=== PATIENT | male | born 1945 | race Caucasian/White ===

== ENCOUNTER 2025-05-02 13:29 | Inpatient (IN) | payer MEDICARE, MEDICAID ==
[~2025-05-02] VITALS: Ht 162.6 cm; Wt 44.2 kg
[2025-05-02] VITALS (7 sets, daily range): BP systolic 77; BP diastolic 45; PULSE 68–89; RESP 16–35; TEMP 97.3; O2SAT 97–100
[~2025-05-02 13:29] MED LIST: HYDR-3565 PO; OMEPRAZOLE
[2025-05-02] MEDS ORDERED: ipratropium/albuterol 3ml nebule NEB PRN (13:50)
--- NOTE | 2025-05-02 14:14 | Physician Documentation ---
History of Present Illness ~ Chief Complaint: Shortness of Breath Stated Complaint: SOB Time Seen by MD: 13:49 Source: patient Exam Limitations: no limitations HPI Patient with a history of COPD on 3 L nasal cannula in with worsening shortness of breath over the past couple of days. Increased cough. No chest pain. History of myocardial infarction. He states it was "mild." Still smokes 5-6 cigarettes a day. Medication Reconciliation Allergies: Coded Allergies: Penicillins (Unverified Allergy, Unknown, PT UNSURE., 04/04/14) Scheduled Hydrocodone Bit/Acetaminophen (Vicodin 5-300 Mg Tablet), 1 EACH PO Q6H, (Reported) [Omeprazole], DAILY, (Reported) Review of Systems All Other Systems at this time: Reviewed and Negative Physical Exam Vital Signs: Temperature: 97.6, Source: Oral, Heart Rate: 89, Respiratory Rate: 15, BP: 87/46, Pulse Oximetry: 99, Weight: 39.000 Oxygen Flow Rate: 3.0 General Appearance: alert, mild distress Neck: normal inspection Respiratory: other (Decreased lung sounds, mildly increased work of breathing; accessory muscle use to breathe when he speaks) Cardiovascular: regular rate, rhythm, no edema, no murmur Gastrointestinal: normal palpation, non-tender Extremities: normal inspection Skin: normal color, warm/dry Neurologic: oriented x4 Psychiatric: appropriate Progress Progress Note Patient feeling in short of breath for the last couple of days and increased cough. History COPD. Chest x-ray shows moderate to large pleural effusion. CT pending for further evaluation. Did give a L of fluids in the ER because his pressures were low. No tachycardia. No fever. Leukocytosis but lactate 2.2. Sepsis versus dehydration. Started on Rocephin. Discussed with hospitalist team who will accept for admission and treatment. Critical care time spent 30 minutes with patient care, chart work and consultation. Results/Orders Results/Orders Orders - LAURI GRAY MD Ipratropium/Albuterol Nebule (Ipratrop/A (05/02/25 13:50) Culture Blood (05/02/25 13:51) Urinalysis, Cult If Indicated (05/02/25 13:51) Chest,Single View (05/02/25 14:02) Monitor (05/02/25 13:51) Oxygen (05/02/25 13:51) Saline Lock (05/02/25 13:51) Page Hospitalist (05/02/25 ) Thoracentesis Therapeutic (A) (05/02/25 14:34) Thoracentesis Diagnostic (A) (05/02/25 ) Cta Chest Pe (05/02/25 14:43) Completed Orders - LAURI GRAY MD Normal Saline 1000ml (0.9% Sodium Chlori (05/02/25 13:50) Methylprednisolone Sod Succ (Solumedrol (05/02/25 13:50) Cbc/Diff (05/02/25 13:51) Chest,Single View (05/02/25 14:02) Procalcitonin (05/02/25 13:51) BMP (05/02/25 13:51) Lacticsepsis (05/02/25 13:51) Ceftriaxone/V1n-Nmufukjn 1gm (Rocephin 1 (05/02/25 14:20) Iohexol 350mg/Ml 100ml (Omnipaque 350mg/ (05/02/25 14:55) Medications Received in ER Medications (Trade) Dose Ordered Sig/Darrick Route PRN Reason Start Time Stop Time Status Last Admin Dose Admin Sodium Chloride 1,000 ml @ 1,000 mls/hr ONCE ONCE IV 05/02/25 13:50 05/02/25 14:49 DC 05/02/25 14:33 1,000 MLS/HR (SoluMEDROL 125mg inj) 125 mg ONCE ONCE IV 05/02/25 13:50 05/02/25 13:52 DC 05/02/25 14:33 125 MG Ceftriaxone Sodium 50 ml @ 100 mls/hr ONCE ONCE IV 05/02/25 14:20 05/02/25 14:49 DC 05/02/25 14:33 100 MLS/HR Vital Signs 05/02/25 05/02/25 13:30 13:39 Temp 97.6 Pulse 88 89 Resp 20 15 B/P (MAP) 92/74 87/46 (60) Pulse Ox 98 99 O2 Flow Rate 3.0 Laboratory Tests Test 05/02/25 14:02 05/02/25 14:13 Lactic Acid Level 2.2 H White Blood Count 8.3 Red Blood Count 4.02 L Hemoglobin 11.8 L Hematocrit 35.6 L Mean Corpuscular Volume 88.6 Mean Corpuscular Hemoglobin 29.4 Mean Corpuscular Hemoglobin Concent 33.2 Red Cell Distribution Width 18.9 H Platelet Count 354 Mean Platelet Volume 6.4 L Neutrophils (%) (Auto) 82.7 H Lymphocytes (%) (Auto) 10.5 L Monocytes (%) (Auto) 6.5 Eosinophils (%) (Auto) 0.1 Basophils (%) (Auto) 0.2 Neutrophils # (Auto) 6.9 Lymphocytes # (Auto) 0.9 L Monocytes # (Auto) 0.5 Eosinophils # (Auto) 0.0 Basophils # (Auto) 0.0 CBC Comment Platelet Estimate Normal Red Blood Cell Morphology Perf Basophilic Stippling Anisocytosis 2+ Sodium Level 135 Potassium Level 4.2 Chloride Level 98 L Carbon Dioxide Level 26.8 Anion Gap 10 Blood Urea Nitrogen 42 H Creatinine 1.21 H Estimated GFR/1.73 m2 58 BUN/Creatinine Ratio 34.7 H Glucose Level 149 H Calcium Level 9.2 Albumin 2.0 L Procalcitonin 0.28 Chemistry Comments Medical Decision Making Additional Infomation Antral includes but isn't limited to: COPD exacerbation, pneumonia, pneumothorax, myocardial infarction, viral infection Departure Disposition: 09 ADMITTED INPATIENT Admitted to Inpatient Unit: yes, to hospitalist Admission Level of Care: Med/Surg with Tele Impression: Primary Impression: Pleural effusion, right Additional Impression: COPD exacerbation Condition: Stable Referrals: NO PRIMARY CARE PROVIDER (PCP) Signature Scribe Signature: No scribe used Attestation: No scribe used LAURI GRAY MD May 02, 2025 14:14
--- NOTE | 2025-05-02 14:16 | RADIOLOGY REPORT ---
CHEST RADIOGRAPH Indication: sob Technique: Single frontal view of the chest was obtained COMPARISON: None FINDINGS: Lines and Tubes: None Lungs: Right lower lobe airspace disease. Pleura: Small to moderate right pleural effusion. No pneumothorax. Cardiomediastinal contours: Unremarkable Bones: Unremarkable IMPRESSION: Right lower lobe airspace disease. Small to moderate right pleural effusion.
[2025-05-02 14:22] LABS: MEAN PLATELET VOLUME 6.4 FL (7.4-10.4); RED CELL DISTRIBUTION WIDTH 18.9 % (11.5-14.5)
[2025-05-02] MEDS: normal saline 1000ml 1,000 ML IV ONE (14:33)
[2025-05-02] MEDS: CefTRIAXone/D5W-Rocephin 1gm 50 ML IV ONE (14:33)
[2025-05-02 14:35] LABS: CREATININE 1.21 MG/DL (0.60-1.10); TOTAL CARBON DIOXIDE 26.8 MMOL/L (24-32); eCRCL 26 ML/MIN; eGFR 58 ML/MIN
[2025-05-02 14:52] LABS: PLATELET ESTIMATE NORMAL
[2025-05-02] MEDS ORDERED: magnesium sulf-water 2g/50mL 50 ML IV PRN (15:15)
[2025-05-02] MEDS ORDERED: mag hydrox/Alum hydrox/simeth 30ml oral suspension PO PRN (15:15)
[2025-05-02] MEDS ORDERED: potassium Cl 20 mEq SR tablet PO PRN ×2 (15:15)
[2025-05-02] MEDS ORDERED: magnesium hydroxide 30ml (MOM) UD suspension PO PRN (15:15)
[2025-05-02] MEDS ORDERED: ondansetron/PF 4mg/2ml inj IV PRN (15:15)
[2025-05-02] MEDS: PERFLUTREN PROTEIN-A MICROSPHR (Optison) 0.22 MG/ML 3ML VIAL IV ONE (15:15)
[2025-05-02] MEDS ORDERED: potassium Cl 40MEQ/1/2NS 520ml 520 ML IV PRN (15:15)
[2025-05-02] MEDS ORDERED: magnesium sulf-water 4G/100mL 100 ML IV PRN (15:15)
[2025-05-02] MEDS ORDERED: magnesium Cl slow-release 64mg tablet PO PRN (15:15)
[2025-05-02] MEDS ORDERED: albuterol 2.5 MG/3 ML nebule NEB PRN (15:25)
--- NOTE | 2025-05-02 15:34 | HISTORY AND PHYSICAL-Residence ---
History & Physical Providers to CC Resident Creating Document: EULALIO GONGORA, SIN ~ History of Present Illness Primary Medical Doctor: Dr. Zhang, [facility] Reason for Admit\Complaint: SEVERE SHORTNESS OF BREATH History of Present Illness 79-year-old male with past medical history of COPD, ex-chronic smoker presented to the ER with a chief complaints of shortness of Breath. Endorses shortness of breath for the past 3 months but worsened since 3 days which brought him to the ER. SOB is associated with orthopnea and PND for the past 1 week. he reports chest pain, pleuritic type, 8/10, more on the right lower lung and aggravated with taking deep breath, standing and sitting too. He endorses cough for the past 4 days associated with yellow-colored sputum, thick in consistency. He do reports wheezing. He denied pedal edema, fever, palpitations, facial puffiness, decreased urine output. He is following Dr. Hamilton for his coronary artery disease(which is questionable, no records available) and he did underwent chemical stress test in Dr. Hamilton's office when he got the 2nd heart attack) We tried to discuss code status with him but he refused to answer and gave his medical POA contact number Ms. Kumar([phone]). We called her in the evening and explained the advanced directives and she want us to continue full code until tomorrow as she could not able to take the clear-cut decision right now. Allergies: Coded Allergies: Penicillins (Unverified Allergy, Unknown, PT UNSURE., 04/04/14) Home Medications Home Medications Active Reported [Omeprazole] DAILY Vicodin 5-300 Mg Tablet (Hydrocodone Bit/Acetaminophen) 1 Each Tablet 1 Each PO Q6H Past Medical History Past Medical History COPD Hypotension Coronary artery disease Past Surgical History Surgical History Comment Noncontributory Past Social History Social History Comment He used to smoke cigarettes 10 -12 cigarettes per day for 48 years and then 3-4 cigarettes per day for the past 2 years and he quit smoking 1-1/2 month back. Smoking: Quit less than 1 year Alcohol Use: None Drug Use: None ROS All Other Systems: Reviewed and Negative ROS Reviewed in full and negative except positive pertinent as in HPI Exam Vitals: Vital Signs Date Time Temp Pulse Resp B/P (MAP) Pulse Ox O2 Delivery O2 Flow Rate FiO2 7/30/25 15:29 24 05/02/25 15:28 70 98 3.0 05/02/25 13:30 97.6 General: General Appearance: alert, awake, oriented to time place person. In mild respiratory distress. agitated. On 4 L of oxygen. Malnourished. Cachectic HEENT: No icterus, no pallor. Bilateral Temporal wasting. No JVD and bilateral carotid upstroke Respiratory: Breath sounds are decreased on the right middle and right lower zone. Crepitations are present on right middle and right lower zone and bilateral expiratory wheezes present over the interscapular area and suprascapular area Cardiovascular: regular rate, rhythm, no edema, no murmur Gastrointestinal: Soft, nondistended, nontender, no organomegaly . No guarding/rigidity/rebound tenderness Extremities: No pedal edema. Clubbing is present. No cyanosis Skin: warm and dry Neurologic: No functional neurological deficit. Sensory, motor, autonomic, cerebellum, cranial nerves are intact Psychiatric: Mild agitated. Diagnostic Data Last Recorded Lab Results: 05/02/25 1413 05/02/25 1413 Advance Care Planning Advanced Care planning: Add on additional 30 min Additional Plan Acute hypoxemic respiratory failure 2/2 below 1) Acute exacerbation of advanced COPD 2)Right large loculated pleural effusion, parapneumonic effusion 3)Bilateral Pneumonia covering Gram-positive and Gram-negative and atypical organism 4) possible acute diastolic heart failure Blood pressures are soft(he has a low blood pressures in less than 90s as baseline) Tachypnea is present Currently on 3 L of oxygen via nasal cannula WBC counts are okay Procalcitonin is normal but lactic acid is elevated initially 2.2 and trended down to 1.1 after fluid resuscitation with 1 L normal saline ABG is ordered Chest x-ray showing right moderate pleural effusion CT angiography ruled out PE but showed bilateral pneumonia with right loculated large pleural effusion Pending echocardiogram report Received 1 dose of ceftriaxone, 500 mg of azithromycin , 125 mg of methylprednisolone today On ceftriaxone 1 g and azithromycin 500 mg On DuoNebs q.4h scheduled and albuterol q.2h p.r.n, incentive spirometer q.1h while awake. Ordered diagnostic and therapeutic thoracentesis and consulted Dr. Harrell's team. Normocytic normochromic anemia Hemoglobin hematocrit is 11.8 and 35.6 Monitor H&H daily Failure to thrive Severe protein malnutrition Hypoalbuminemia Serum albumin is 2 On ensure and live p.o. t.i.d. on multivitamin tablet Nutrition consult is placed Code status: Full code Diet: Heart healthy diet DVT prophylaxis: SCDs and heparin PT: Ordered Prognosis: Guarded Eulalio Gongora IM resident, PGY 2 Date of Service: May 02, 2025 Billing Provider: JT SALMON MD, VENKATESH, RES May 02, 2025 15:34
[2025-05-02 16:06] LABS: INR 1.3 INR
[2025-05-02 16:21] LABS: PHOSPHORUS 3.2 MG/DL (2.3-4.5); PRO BRAIN NATRIURETIC PEPTIDE 2463 PG/ML (0-450)
[2025-05-02] MEDS: azithromycin/NS 500mg/250ml 250 ML IV SCH (16:30)
[2025-05-02] MEDS: heparin, porcine 5000 units/ml vial SQ SCH (16:32)
--- NOTE | 2025-05-02 16:50 | RADIOLOGY REPORT ---
EXAM: CT CTA CHEST PE W/ IV CONTRAST HISTORY: sob, large right effusion on CXR COMPARISON: DI CHEST,SINGLE VIEW on DOS: 05/02/25 TECHNIQUE: Helical CT images of the chest were performed with 100 mL Omnipaque 350 IV contrast using pulmonary CTA protocol. Sagittal and coronal reformatted images and 3D MIP images were obtained. Thi s CT exam was performed using 1 or more of the following dose reduction techniques: Automated exposur e control, adjustment of the mA and/or kv according to patient size, or the use of iterative reconstr uction techniques. Radiation Dose: Chest: CTDI volume is 27.15 mGy. Dose-length product is 248.9 mGy* cm. FINDINGS: No pulmonary arterial filling defects are identified. There is a large loculated right pleu ral effusion with associated compressive atelectasis of a majority of the right lower lobe. There is moderate to severe paraseptal and centrilobular emphysema. There is peribronchial thickening and bila teral lower lobe mucous plugging. There are mild patchy infiltrates in the left lower lobe. No pneumo thorax. No suspicious mediastinal or axillary adenopathy. The heart is not enlarged. No thoracic aort ic aneurysm or dissection. There is borderline ectasia of the central pulmonary arteries. There is a small pericardial effusion. There is a left renal artery stent which appears patent. There is moderat e to severe thoracic degenerative disc disease. IMPRESSION: 1. No evidence of pulmonary embolism. 2. Large loculated right pleural effusion with compressive atelectasis of the majority of the right l ower lobe. Consider therapeutic right thoracentesis. 3. Reactive airways disease with peribronchial thickening and bilateral lower lobe mucous plugging. P atchy opacities in the left lower lobe may represent postobstructive atelectasis or pneumonia. 4. Moderate to severe emphysema. 5. Coronary artery disease and pericardial effusion.
[2025-05-02] MEDS: ipratropium/albuterol 3ml nebule NEB SCH (16:55)
[2025-05-02 17:56] LABS: LEUKOCYTE ESTERASE ,URINE NEGATIVE (Neg); NITRITES, URINE NEGATIVE (Neg); OCCULT BLOOD,URINE NEGATIVE (Neg)
[2025-05-02 18:00] LABS: UA COLLECTION TYPE NON-SPECIFIED
[2025-05-02 18:02] LABS: SQUAMOUS EPITHELIAL CELL,UR NONE SEEN /LPF (FEW)
[2025-05-02] MEDS: multivitamins, therapeutics tablet PO SCH (18:40)
[2025-05-02] MEDS: lactose-reduced food (Ensure Enlive) - 237ml bottle PO SCH (18:40)
[2025-05-02] MEDS: docusate sod 100mg capsule PO SCH (20:00)
[2025-05-02] MEDS: K and/or MAG REPLACEMENT MC SCH (20:00)
[2025-05-02] MEDS: methylPREDNISolone sod succ/PF 40mg inj. IV SCH (20:07)
[2025-05-02] MEDS: normal saline 1000ML IV soln IVB STA (21:31)
[2025-05-02] MEDS: normal saline 1000ml 1,000 ML IV SCH (22:00)
[2025-05-03] VITALS (20 sets, daily range): BP systolic 87–115; BP diastolic 42–73; PULSE 60–90; RESP 17–40; TEMP 97–97.4; O2SAT 96–100
[2025-05-03 06:26] LABS: CHOL/HDL RATIO 2.8 (0.00-4.99); CREATININE 1.05 MG/DL (0.60-1.10); LDL CHOLESTEROL 48 MG/DL (50-100); MEAN PLATELET VOLUME 7.0 FL (7.4-10.4); RED CELL DISTRIBUTION WIDTH 18.6 % (11.5-14.5); TOTAL CARBON DIOXIDE 24.0 MMOL/L (24-32); eCRCL 30 ML/MIN; eGFR 68 ML/MIN
[2025-05-03] MEDS: CefTRIAXone/D5W-Rocephin 1gm 50 ML IV SCH (07:27)
[2025-05-03] MEDS ORDERED: glucagon, human recombinant 1mg kit SUBCUT PRN (08:45)
[2025-05-03] MEDS ORDERED: dextrose 50%-water 50ml dispensing syringe IV PRN ×2 (08:45)
[2025-05-03] MEDS ORDERED: DEXTROSE 15 GM of carb/4 tabs (each vial/BOTTLE has 4 tablets) PO PRN ×2 (08:45)
--- NOTE | 2025-05-03 09:56 | CARDIOLOGY REPORT ---
APPROVED REPORT EXAM: Comprehensive 2D, Doppler, and color-flow Echocardiogram. Patient Location: ER RM 9 Blood Pressure: 113/44 mmHg Heart Rate: 66 bpm Indications Congestive Heart Failure Shortness of Breath COPD HX of Myocardial Infarction HOME COMFORT ADVISOR: Deonte Hamilton MD NO Previous ECHO 2D Dimensions LA Diam2.5 cm IVSd 0.8 (0.7-1.1cm) LVDd 4.4 cm PWd 0.9 (0.7-1.1cm) IVSs 1.3 (0.8-1.2cm) LVDs 3.0 (2.5-4.0cm) PWs 1.3 (0.8-1.2cm) LVOT Diameter 1.87 (1.8-2.4cm) LVEF(%) 61.2 (>50%) IVC 12.87 mm FS (%) 32.6 % SV 54.2 ml CO 4.1 L/min M-Mode Dimensions Left Atrium(MM) 3.04 (2.5-4.0cm) Aortic Root 3.08 (2.2-3.7cm) Aortic Cusp Exc 1.72 (1.5-2.0cm) MV EPSS 1.4 (<0.5cm) Aortic Valve AoV Peak Yaron. 67.0 cm/s AoV VTI 10.8 cm AO Peak GR. 1.8 mmHg AO Mean GR. 1 mmHg LVOT VTI 10.70 cm LVOT Peak Yaron. 58.4 cm/s ENOCH(VTI)/BSA 2.72 cm2/m2 ENOCH (VTI) 2.72 cm2 Mitral Valve MV E Velocity 52.3 cm/s MV Peak Gr. 1 mmHg MV DECEL TIME 244 ms MV A Velocity 73.8 cm/s MV PHT 104 ms E/A Ratio 0.7 MVA (PHT) 2.12 cm2 MV VMax51.2 cm/s TDI Lateral E' P. V6.98 cm/s E/Lateral E' 7.5 Pulmonary Valve PAEDP15.45 mmHg Tricuspid Valve TR P. Velocity 249 cm/s RAP ESTIMATE 10 mmHg TR Peak Gr. 25 mmHg RVSP 35 mmHg LEFT VENTRICLE Normal LV size and wall thickness. Overall systolic function is normal. LVEF is 60-65%. ATRIA The left atrium size is normal. AORTIC VALVE Trileaflet AV appears mildly sclerotic without stenosis. Poor Doppler angles due to lack of adequate imaging windows, quantitative data must be clinically correlated. No insufficiency. MITRAL VALVE Mild mitral annular calcification without stenosis. Trace regurgitation. TRICUSPID VALVE The tricuspid valve is normal in structure with mild regurgitation. PULMONIC VALVE The pulmonary valve is normal in structure with trace insufficiency. GREAT VESSELS The aortic root is normal in size. The IVC is normal in size and collapses >50% with inspiration. PERICARDIUM Normal pericardium. No effusion. Ascites is present. Other Information Study Quality: Adequate Conclusion Normal LV size and wall thickness. Overall systolic function is normal. LVEF is 60-65%. The left atrium size is normal. Trileaflet AV appears mildly sclerotic without stenosis. Poor Doppler angles due to lack of adequate imaging windows, quantitative data must be clinically correlated. No insufficiency. Mild mitral annular calcification without stenosis. Trace regurgitation. The tricuspid valve is normal in structure with mild regurgitation. The pulmonary valve is normal in structure with trace insufficiency. Normal pericardium. No effusion.
--- NOTE | 2025-05-03 10:50 | PROGRESS NOTE ---
Progress Note - Angio Providers to CC ~ Angio Progress Note: After explanation of risks benefits alt of thoracentesis with possible chest tube, consent disclosed. FRANKY CRANE MD May 03, 2025 10:50
--- NOTE | 2025-05-03 10:52 | PROGRESS NOTE ---
Progress Note - Angio Providers to CC ~ Angio Progress Note: S/P Right 10.2 Fr pigtail for empyema. Sample sent to lab. Rec quant TB blood testing as precaution. Will likely need tube in place minimum of 3-5 days. EBL zero. Dictated. FRANKY CRANE MD May 03, 2025 10:52
[2025-05-03 10:55] LABS: BFSOURCE RIGHT PLEURAL FLD; BODY FLUID PH (NON-PLEURAL) 6.0
[2025-05-03 11:11] LABS: LDH,BODY FLUID 280 U/L
[2025-05-03 11:18] LABS: GLUCOSE,BODY FLUID 1 MG/DL; TOTAL PROTEIN,BODY FLUID < 2.0 G/DL
[2025-05-03 12:37] LABS: LACTATE DEHYDROGENASE 87 U/L (85-227)
[2025-05-03 12:38] LABS: BFAPPEAR TURBID; BFCOLOR YELLOW; BFSOURCE RIGHT PLEURAL FLD; BFVOLUME 50 ML
[2025-05-03 12:39] LABS: BF RBC COUNT 8600 /CU MM; BF WBC COUNT 32200 /CU MM (0-1000); LYMPHOCYTES,BODY FLUID 53 %; NEUTROPHILS,BODY FLUID 22 %
[2025-05-03] MEDS: INSULIN LISPRO 100 UNIT/ML INSULN.PEN MULTI-DOSE SQ SCH (12:50)
[2025-05-03 12:52] LABS: MONOCYTES,BODY FLUID 25 %
--- NOTE | 2025-05-03 14:26 | RADIOLOGY REPORT ---
EXAM: DI CHEST,SINGLE VIEW Indication: s/p thoracentesis Technique: Single frontal view of the chest was obtained Comparison: CT CTA CHEST PE W/ IV CONTRAST on DOS: 05/02/25, DI CHEST,SINGLE VIEW on DOS: 05/02/25 FINDINGS: Lines and Tubes: Right pigtail catheter. Lungs: Interval decrease in right pleural effusion. Multifocal right lung opacities. Pleura: No effusion. No pneumothorax. Cardiomediastinal contours: Unremarkable Bones: No acute osseous abnormality. IMPRESSION: Interval placement of right pigtail catheter and interval decrease in right pleural effusion.
[2025-05-03] MEDS: piperacillin/tazo 4.5gm/100ml 100 ML IV SCH (15:47)
--- NOTE | 2025-05-03 18:01 | RADIOLOGY REPORT ---
10.2 Lebanese right-sided CHEST TUBE PLACEMENT UNDER ULTRASOUND GUIDANCE: PRE-PROCEDURE DIAGNOSIS: Pleural effusion POST-PROCEDURE DIAGNOSIS: Pus/large right-sided empyema HISTORY: Pleural effusion Complications: None ESTIMATED BLOOD LOSS: 0 ml PROCEDURE: The nature, alternatives, and risks were discussed with the patient and informed consent was disclosed. The patient was positioned upright and ultrasound was used to examine the posterior right chest. An appropriate position was marked at the skin. After sterile preparation and draping, 1% Lidocaine 8 mL subcutaneous anesthesia was administered. The right pleural space was entered with a 5 Lebanese Yueh catheter. Gal pus was aspirated and sent to laboratory for analysis. Because of this plans were made for chest tube. Over a Sun Number guidewire, the catheter was exchanged for a 10.2 Fr Rojas-Foreman catheter which was connected to a Pleurovac for suction and secured to the chest wall with an adhesive dressing. The patient tolerated the procedure well without apparent acute complications. IMPRESSION: 1. Placement of right 10.2 Lebanese chest tube. 2. Diagnostic right thoracentesis
--- NOTE | 2025-05-03 19:07 | PROGRESS NOTE- Residence ---
Progress Note - Resident Providers to CC Resident Creating Document: TIM GONGORA RES ~ Antibiotic Timeout Antibiotic Ordered?: Yes Subjective Seen and examined the patient at bedside. He is improving with the shortness of breaths oxygen demand is stable. He is getting the thoracentesis with IR team. No new complaints and overnight events. Consulted Dr. Martinez on today afternoon. Objective Vital Signs Date Time Temp Pulse Resp B/P (MAP) Pulse Ox O2 Delivery O2 Flow Rate FiO2 05/03/25 15:50 90 40 Nasal Cannula 2.0 05/03/25 15:36 96 28 05/03/25 15:03 97.2 105/57 (73) Result Diagram: 05/03/25 0540 05/03/25 0540 General Appearance: alert, awake, oriented to time place person. Not in acute distress. On 2 L of oxygen via nasal cannula. Malnourished. Cachectic HEENT: No icterus, no pallor. Bilateral Temporal wasting. No JVD and bilateral carotid upstroke Respiratory: Breath sounds are decreased on the right middle and right lower zone. Crepitations are present on right middle and right lower zone and bilateral expiratory wheezes present over the interscapular area and suprascapular area both the crepitations and wheezing is improved when compared to the yesterday. Cardiovascular: regular rate, rhythm, no edema, no murmur Gastrointestinal: Soft, nondistended, nontender, no organomegaly. No guarding/rigidity/rebound tenderness Extremities: No pedal edema. Clubbing is present. No cyanosis Skin: warm and dry Neurologic: No functional neurological deficit. Sensory, motor, autonomic, cerebellum, cranial nerves are intact Psychiatric: Mild agitated. Coagulation Studies Laboratory Tests Test 05/02/25 14:13 Prothrombin Time 13.0 SECONDS (9.0-12.0) H INR International Normalized Ratio 1.3 INR Coagulation Comments Advance Care Planning Advanced Care plannin - 30 Minutes Plan Plan Acute hypoxemic respiratory failure 2/2 below 1) Acute exacerbation of advanced COPD 2) Right Empyema status post right pigtail catheter placement 3)Bilateral Pneumonia covering Gram-positive and Gram-negative and atypical organism 4) possible acute diastolic heart failure Blood pressures are soft(he has a low blood pressures in less than 90s as baseline) Tachypnea is present Currently on 2 L of oxygen via nasal cannula WBC counts are okay On 05/02/2021. Procalcitonin is normal and lactic acid trended down to 1.1 from 2.2 with 1 L of normal saline fluid resuscitation. Chest x-ray showing right moderate pleural effusion CT angiography ruled out PE but showed bilateral pneumonia with right loculated large pleural effusion Pending echocardiogram report Received 1 dose of ceftriaxone, 500 mg of azithromycin , 125 mg of methylprednisolone today Antibiotics changed to Zosyn and azithromycin On DuoNebs q.4h scheduled and albuterol q.2h p.r.n, incentive spirometer q.1h while awake. Kvng Pickering placed the pigtail catheter for empyema. We are doing the QuantiFERON TB testing and sputum testing. Pleural fluid pH [address] Jose Calderon was doing the thoracentesis. It is a thick pus suggestive of empyema Normocytic normochromic anemia Hemoglobin hematocrit is 10.7 and 32.6 Monitor H&H daily Failure to thrive Severe protein malnutrition Hypoalbuminemia Serum albumin is 1.7 On ensure and live p.o. t.i.d. on multivitamin tablet Nutrition consult is placed Code status: Full code Diet: Heart healthy diet DVT prophylaxis: SCDs and heparin PT: Ordered Prognosis: Guarded Tim Gongora IM resident, PGY 2 Date of Service: May 03, 2025 Billing Provider: JT SALMON MD, VENKATESH, SIN May 03, 2025 19:07
[2025-05-04] VITALS (18 sets, daily range): BP systolic 93–143; BP diastolic 51–68; PULSE 65–100; RESP 16–32; TEMP 96.9–97.9; O2SAT 94–99
[2025-05-04 06:41] LABS: MEAN PLATELET VOLUME 7.2 FL (7.4-10.4); RED CELL DISTRIBUTION WIDTH 18.8 % (11.5-14.5)
[2025-05-04 07:18] LABS: CREATININE 1.28 MG/DL (0.60-1.10); TOTAL CARBON DIOXIDE 30.5 MMOL/L (24-32); eCRCL 25 ML/MIN; eGFR 54 ML/MIN
[2025-05-04] MEDS ORDERED: MIDO5TAB4 PO (10:20)
[2025-05-04] MEDS ORDERED: LOSA25TA41 PO (10:20)
[2025-05-04] MEDS ORDERED: SPIR25TA5 PO (10:20)
[2025-05-04] MEDS ORDERED: IPRA3AMP31 NEB (10:20)
[2025-05-04] MEDS ORDERED: FURO20TA4 PO (10:20)
[2025-05-04] MEDS ORDERED: FLUT1AER PO (10:20)
[2025-05-04] MEDS ORDERED: FLUT16SP26 BOTHNARES (10:20)
[2025-05-04] MEDS ORDERED: SACU1TAB PO (10:20)
[2025-05-04] MEDS ORDERED: PRED10TA PO (10:20)
[2025-05-04] MEDS ORDERED: ASPI-1397 PO (10:20)
[2025-05-04] MEDS: calcium chloride 100 MG/1 ML inj IV ONE (11:16)
[2025-05-04] MEDS: CefTRIAXone 2gm/D5W 50ml BAG 50 ML IV SCH (11:17)
[2025-05-04] MEDS: dextrose 50%-water 50ml dispensing syringe IV ONE (11:17)
[2025-05-04] MEDS: insulin regular, human 10 units/0.1 ml syringe IV ONE (11:25)
[2025-05-04 12:33] LABS: CREATININE 1.21 MG/DL (0.60-1.10); TOTAL CARBON DIOXIDE 29.6 MMOL/L (24-32); eCRCL 26 ML/MIN; eGFR 58 ML/MIN
--- NOTE | 2025-05-04 14:49 | CONSULTATION ---
DATE OF CONSULTATION: 05/04/2025 DICTATING PHYSICIAN: Gary Martinez MD REASON FOR CONSULTATION: I have seen the patient at the request of Dr. Bright for evaluation of right-sided empyema. HISTORY OF PRESENT ILLNESS: The patient is an 79-year-old male with COPD and a long smoking history who states that he has not felt well for the past 2 years. He is followed by [facility]. He states that the only inhaler he takes occasionally is albuterol. He does not use supplemental oxygen at home. He states that he quit smoking about a month and a half ago in mid March and he does not have any craving to smoke at this time. He presented to the Emergency Department 2 days ago with shortness of breath. Imaging at that time did show opacification involving the right lung. CT angiogram did not show evidence of pulmonary embolism, but he had a loculated right pleural effusion with atelectasis versus consolidation of the right lower lobe. He also had some patchy opacities at the left lower lobe. Dr. Garcia of Interventional Radiology did perform a right thoracentesis and a chest tube was placed at that time. He is draining purulent fluid. He states that his Pleurovac has already been changed once and the second Pleurovac currently has 1600 mL present. He states that he is breathing easier. He has received a variety of antibiotics thus far including ceftriaxone, azithromycin, and Zosyn. He was put on an enormous dose of Solu-Medrol given his size. His white blood cell count is normal and he is not having any fever. When I asked him if his clinical condition had worsened in the past several weeks or past several months, he denied that and states that he has truly been feeling poor for about 2 years. PAST MEDICAL HISTORY: * COPD. * Coronary artery disease. PAST SURGICAL HISTORY: None. ALLERGIES: PENICILLIN. MEDICATIONS: * Zosyn. * Azithromycin. * Solu-Medrol 60 mg every 6 hours. * Colace. * Multivitamin. * Subcutaneous heparin. * Albuterol/Atrovent. FAMILY HISTORY: Noncontributory. SOCIAL HISTORY: He lives alone with his cat. He lives here in [place]. He has a long smoking history, but he quit 03/15. He is followed by Dr. Zhang at [facility]. He does not drink alcohol. PHYSICAL EXAMINATION: VITAL SIGNS: He is afebrile with stable vital signs, currently on 2 L. GENERAL: He is a very pleasant, thin, elderly male, sitting up in bed, looking stable. HEENT: Sclerae anicteric. Mouth is clear. NECK: Supple. LUNGS: Reveal decreased breath sounds at the right base. He does have a right-sided chest tube in place and there is purulent fluid in the Pleurovac. Left lung is fairly clear. HEART: Regular rate and rhythm. ABDOMEN: Soft, nontender, and nondistended. EXTREMITIES: No edema. LABORATORY DATA: His white blood cell count is 8300, hemoglobin 11.8, platelets 340,000. Creatinine is 1.28. Procalcitonin 0.28. His right pleural fluid had some interesting findings. The pH is low at 6.0. The glucose is very low at 1 and the white blood cell count is 32,200. It is strange that he does not have a left shift with that white count. He has a predominance of mononuclear cells. Interestingly, the protein is less than 2, but the LDH is 280. This is certainly consistent with an exudate and probable empyema. The diagnosis of empyema is made more definitive by the Gram stain that shows gram-positive cocci in pairs and chains. He also has a sputum culture pending along with his pleural fluid culture. MRSA screen is negative. Imaging studies have been reviewed with CT scan described above. Echocardiogram shows a normal ejection fraction. IMPRESSION: * Right-sided empyema that appears to be due to a streptococcal infection based on Gram stain from pleural fluid. Once again, that pleural fluid did have some interesting characteristics and I suspect it is fairly longstanding. He has been drained via chest tube and he is clinically stable at this time. * Bilateral lower lobe pneumonia. * COPD with recent discontinuation of smoking. RECOMMENDATIONS: Zosyn and azithromycin will be discontinued. He will be started on ceftriaxone 2 g daily along with clindamycin. I will follow up his culture results and adjust antibiotics accordingly. I do think his steroid dose can be dropped significantly. I am going to cut him down to 40 mg twice daily and we will try to get it tapered down further from there. He will continue with chest tube drainage for now. Once his output is dropped off, he will need repeat CT imaging. I am hopeful that we can get the area fully evacuated with his chest tube, and hopefully, he would not need any surgical procedure. I will continue to follow the patient closely and I thank you for allowing me to participate in his care. 75 minutes time spent [id number], review of medical record including labs/cultures/imaging, orders and documentation. Gary Martinez MD TID: [id number] RECEIPT: [id number] CAR/ARIEL PEREZ
--- NOTE | 2025-05-04 17:06 | CONSULTATION REPORT - RESIDENT ---
Consult Providers to CC Resident Creating Document: CATRACHOLIZSHANNAN PHILLIPS, RES CC: VY OTERO MD History of Present Illness Reason for Admit\Complaint: Shortness of breaths, pigtail placement History of Present Illness An 79-year-old male with past medical history of COPD, HTN presented to the ED in view of gradual worsening of shortness of breaths over the last three months. Patient's shortness of breaths had become very severe with the last three days with associated orthopnea and PND. Patient also endorses chest pain, pleuritic in character, 8/10 in severity, more on the right side that aggravates with deep inspiration and moving around. Patient endorses cough associated with yellow- colored sputum, thick in consistency. Patient denies fever, palpitations, decreased urine output. Patient denies history of living in group homes, incarcerated, exposure to tuberculosis. Patient endorses loss of about 50 lb in the last two years. On further imaging, chest x-ray revealed opacification GI on, loculated right pleural effusion with atelectasis versus consolidation in the right lower lobe. Patient also had some patchy opacities of the left lower lobe. Dr. Garcia, IR perform right thoracocentesis and chest tube was placed at this time that is draining purulent fluid. ICU was consulted in view of empyema with draining pus from the pigtail that was placed by IR on 05/03/2025. Allergies: Coded Allergies: Penicillins (Unverified Allergy, Unknown, PT UNSURE., 04/04/14) Home Medications Home Medications Active Reported Losartan Potassium 25 Mg Tablet 1 Tab PO DAILY Midodrine HCl 5 Mg Tablet 1 Tab PO TID Furosemide 20 Mg Tablet 1 Tab PO BID Spironolactone 25 Mg Tablet 1 Tab PO DAILY Prednisone (Prednisone) 10 Mg Tablet 1 Tab PO Entresto 24 mg-26 mg Tablet (Sacubitril/Valsartan) 24 Mg-26 Mg Tablet 1 Tab PO BID Breo Ellipta 100-25 Mcg INH (Fluticasone/Vilanterol) 100 Mcg-25 Mcg/Dose Aer.pow.ba 1 Puffs PO DAILY Fluticasone Propionate 50 Mcg/Actuation Eola.susp 2 Sprays BOTHNARES DAILY Duoneb 2.5-0.5 Mg/3 Ml Soln (Ipratropium/Albuterol Sulfate) 0.5 Mg-3 Mg (2.5 Mg Base)/3 Ml Ampul.neb 1 Vial NEB QID Aspirin EC (Aspirin) 81 Mg Tablet.dr 1 Tab PO DAILY [Omeprazole] DAILY Vicodin 5-300 Mg Tablet (Hydrocodone Bit/Acetaminophen) 1 Each Tablet 1 Each PO Q6H Past Medical History Past Medical History COPD HTN Past Surgical History Surgical History Comment None Past Social History Social History Comment Former smoker: Quit smoking 1-1 and half month back, smoked half pack of cigarettes per day for the last 48 years, tapered down to 3-4 cigarettes per day for the last two years. Denies alcohol use, marijuana or illicit drug use. ROS ROS All other systems reviewed in full and negative except for the pertinent positives mentioned in the HPI Exam Vitals: Vital Signs Date Time Temp Pulse Resp B/P (MAP) Pulse Ox O2 Delivery O2 Flow Rate FiO2 05/04/25 15:00 96.9 88 22 97/57 (70) 95 Room Air 05/04/25 14:35 0.0 05/04/25 14:27 21 General: General: Extremely malnourished elderly male, Alert, awake, oriented, not in acute distress HEENT: PERRLA, no icterus, pallor, lymphadenopathy, carotid bruit Respiratory system: Decreased bilateral breath sounds, decreased breath sounds in the right middle and lower zones. Crackles present in the right middle and lower zones, diffuse bilateral expiratory wheeze present CVS: S1-S2 heard, no murmurs/rubs/gallop GI: Soft, nontender, no organomegaly, no guarding/rigidity, bowel sounds present Neuro: No focal neurological deficits present Extremities: No edema cyanosis clubbing/deformities Skin: Warm and dry Diagnostic Data Last Recorded Lab Results: 05/04/25 0553 05/04/25 1145 Diagnostic Data: Laboratory Tests Test 05/02/25 14:13 Prothrombin Time 13.0 SECONDS (9.0-12.0) H INR International Normalized Ratio 1.3 INR Coagulation Comments Additional Plan Assessment: An 79-year-old male with past medical history of HTN and COPD presented to the ED in view of gradual worsening of shortness of breaths. On further imaging, patient was found to have right-sided loculated pleural effusion on chest x-ray. Patient underwent right-sided pigtail placement on 05/03/2025. ICU was consulted in view of empyema and pigtail management. Plan: Acute hypoxemic respiratory failure 2/2 * bilateral lower lobe pneumonia * Right-sided empyema, Gram-positive and Gram-negative organisms, can not exclude anaerobes * Acute COPD exacerbation S/p right-sided thoracocentesis and chest tube placement PE, ruled out Trapped lung vs fibrinous exudates preventing the lung from re-expanding CXR: Right lower lobe airspace disease CT chest: Large loculated right pleural effusion with compressive atelectasis of the majority of the right lower lobe. Patchy opacities in the left lower lobe may represent postobstructive atelectasis or pneumonia. Sputum and pleural fluid culture: GNR, GPC in pairs and short chains, moderate budding yeast with pseudohyphae, GPR resembling diphtheroids Pleural fluid analysis: Exudative effusion Continue conservative management for now: * IV clindamycin q.8h, IV ceftriaxone daily, IV methylprednisolone 40 mg b.i.d. * DuoNeb q.4h scheduled, q.2h p.r.n. * Continue draining with chest tube, currently 1600 mL of pus drained in the tube * Follow up with QuantiFERON TB testing Patient might require decortication surgery, however patient isn't an ideal candidate for surgery. Prerenal LESA probably secondary to renal tubular stasis HTN Failure to thrive Severe protein energy malnutrition Management as per hospitalist team Code status: Full code Diet: Heart healthy DVT prophylaxis: Heparin subcutaneous Disposition: Continue care in PCU, follow up with TB QuantiFERON test, continue current management Shannan Kamara MD Internal Medicine, PGY 2 Date of Service: May 04, 2025 Billing Provider: VY OTERO MD,SHANNAN, RES May 04, 2025 17:06
--- NOTE | 2025-05-04 19:16 | PROGRESS NOTE- Residence ---
Progress Note - Resident Providers to CC Resident Creating Document: BRAIN ESPARZA, SIN ~ Antibiotic Timeout Antibiotic Ordered?: Yes Subjective Patient seen and examined at the bedside today. The patient stated that his shortness of breath and cough has been improving when compared to yesterday. He stated that since the last two year he has been having difficulty eating food and has been intermittently choking on his food. He also reported that he has been having difficulty cooking at home and has only been eating frozen food over the last few years. He denied any other concerns or complaints at the moment. Objective Vital Signs Date Time Temp Pulse Resp B/P (MAP) Pulse Ox O2 Delivery O2 Flow Rate FiO2 05/04/25 15:00 96.9 88 22 97/57 (70) 95 Room Air 05/04/25 14:35 0.0 05/04/25 14:27 21 Result Diagram: 05/04/25 0553 05/04/25 1145 General: Awake and Alert, no acute distress. Emaciated, thin elderly male. HEENT: Conjunctiva pink, Sclera clear, Mucus Membranes moist. Neck: Supple without masses and tenderness. Resp: Bilaterally decreased breaths sounds. Right lower lobe João crackles. Bilateral diffuse wheezing present. Heart: Regular Rate and rhythm, normal S1 and S2 without murmur, rub or gallop. Abdomen: Soft and non tender no organomegaly Extremities: No cyanosis,clubbing or edema. Skin: Warm and Dry. Neurology: No focal motor or sensory deficits. Coagulation Studies Laboratory Tests Test 05/02/25 14:13 Prothrombin Time 13.0 SECONDS (9.0-12.0) H INR International Normalized Ratio 1.3 INR Coagulation Comments Assessment Assessment 79-year-old male with past medical history of COPD, hypertension is admitted in the hospital for evaluation and management of acute hypoxemic respiratory failure secondary to community-acquired pneumonia and right-sided pleural effusion most likely parapneumonic. Plan Plan Acute hypoxemic respiratory failure Community-acquired pneumonia, possibly secondary to Gram-positive versus Gram- negative bacteria Right-sided pleural effusion-most likely secondary to parapneumonic effusion versus malignant effusion Acute COPD exacerbation The patient's oxygen requirement has come down significantly. He is breathing comfortably on room air. He had a right side pigtail catheter placed by Dr. Garcia on the right side. The pigtail catheter has been draining significant amount of white purulent fluid. The Infectious Disease specialist Dr. Martinez has been consulted. As per Dr. Martinez's recommendation the day antibiotics has been changed from IV Zosyn and azithromycin to IV ceftriaxone 2 g daily and IV clindamycin 600 mg q.8 hours. Blood cultures has been negative two days. Pleural fluid culture is negative after one day. Pleural fluid analysis significant for exudative fluid. The patient's sputum culture is positive for Gram-negative rods. Patient has been put on isolation and awaiting the test results for QuantiFERON to rule out tuberculosis. The on-call product representative-Dr. Harrell has been consulted for the management of the patient's chest tube. Appreciate recommendations. . Patient is on DuoNeb nebulization q.4 hours scheduled. Albuterol as needed for shortness of breaths or wheezing q.2 hours. Respiratory therapist to evaluate and treat the patient. Patient on methylprednisolone 40 mg IV b.i.d.. Normocytic normochromic anemia The patient's H&H has been stable. Follow up with iron studies. Continue to monitor H&H daily. Severe protein malnutrition Failure to thrive Hypoalbuminemia Ordered a speech evaluation by the speech therapist. We will follow up as per recommendation. Started the patient on aspiration precautions. Started ensure Enlive p.o. t.i.d. and multivitamin tablets. Beam Sealer has been consulted. Diabetes mellitus Started on hyperglycemia/hypoglycemia protocol. Hyperkalemia-resolved Continue to monitor electrolytes closely. Code status: Full code Diet: Heart healthy diet , aspiration precaution, speech therapist to evaluate swallowing. DVT prophylaxis: SCDs and heparin PT: Ordered Prognosis: Guarded Disposition: Continue medical management. Anticipate discharge home versus post acute care in the next 48 hours. Brain Esparza MD Internal Medicine Resident, PGY-3 Date of Service: May 04, 2025 Billing Provider: JT SALMON MD, SURYA PRATIK, RES May 04, 2025 19:16
[2025-05-04] MEDS: methylPREDNISolone sod succ/PF 40mg inj. IV SCH (22:08)
[2025-05-04] MEDS: insulin glargine (Lantus) pen - multi-dose SQ SCH (22:18)
[2025-05-05] VITALS (20 sets, daily range): BP systolic 111–129; BP diastolic 54–74; PULSE 65–97; RESP 15–21; TEMP 97.2–97.8; O2SAT 92–98
[2025-05-05 06:25] LABS: MEAN PLATELET VOLUME 7.2 FL (7.4-10.4); RED CELL DISTRIBUTION WIDTH 18.8 % (11.5-14.5)
[2025-05-05 06:49] LABS: CREATININE 1.00 MG/DL (0.60-1.10); TOTAL CARBON DIOXIDE 28.3 MMOL/L (24-32); eCRCL 32 ML/MIN; eGFR 72 ML/MIN
--- NOTE | 2025-05-05 11:59 | RADIOLOGY REPORT ---
CHEST RADIOGRAPH Indication: s/p right empyema pig tail catherisation followup Technique: Single frontal view of the chest was obtained COMPARISON: DI CHEST,SINGLE VIEW on DOS: 05/03/25, CT CTA CHEST PE W/ IV CONTRAST on DOS: 05/02/25, DI CHEST,SINGLE VIEW on DOS: 05/02/25 FINDINGS: Lines and Tubes: Right pigtail catheter unchanged in position Very small right peripheral pneumothorax Right basilar atelectasis/ pleural effusion, diminished since the prior study. Lungs: Clear Pleura: No effusion. No pneumothorax. Cardiomediastinal contours: Unremarkable Bones: Unremarkable IMPRESSION: 1. Small right peripheral pneumothorax Right basal atelectasis/ fluid, improved since the prior study
--- NOTE | 2025-05-05 12:29 | PROGRESS NOTE ---
Progress Note Dictate Providers to CC ~ Subjective Subjective: He states that he is feeling better. He appears to have another 200 mL in he is Pleur-evac compared to when I saw him yesterday. No fever. Breathing stable. Objective Objective: GENERAL: He is a pleasant, thin, elderly male, sitting up in bed, looking stable. LUNGS: Reveal decreased breath sounds at the right base. He does have a right-sided chest tube in place and there is purulent fluid in the Pleurovac. Left lung is fairly clear. HEART: Regular rate and rhythm. ABDOMEN: Soft, nontender, and nondistended. EXTREMITIES: No edema. Lab Results: 05/05/25 0548 05/05/2548 Lab comments: Sputum culture with Serratia Pleural fluid culture with Gram-positive cocci Blood cultures negative Radiology comments: Chest x-ray with small right pneumothorax and some persistent opacification at the right base Problem\Assessment\Plan Additional Plan 1. Right-sided empyema that appears to be due to a streptococcal infection based on Gram stain from pleural fluid s/p chest tube drainage May have some degree of trapped lung 2. Bilateral lower lobe pneumonia Serratia on culture 3. COPD with recent discontinuation of smoking Continue ceftriaxone and clindamycin Taper steroids Follow up culture of pleural fluid Continue chest tube drainage for now Likely needs repeat CT scan soon DEREK MIGUEL MD May 05, 2025 12:29
--- NOTE | 2025-05-05 19:06 | PROGRESS NOTE- Residence ---
Progress Note - Resident Providers to CC Resident Creating Document: EULALIO GONGORA RES ~ Antibiotic Timeout Antibiotic Ordered?: Yes Subjective Patient seen and examined at the bedside today. He stated that he felt better on today. A total of 2000 mL of the fluid drained in the pleur evac so far. He denied any other concerns or complaints on today Objective Vital Signs Date Time Temp Pulse Resp B/P (MAP) Pulse Ox O2 Delivery O2 Flow Rate FiO2 05/05/25 15:46 83 21 Room Air 0.0 05/05/25 15:40 95 21 05/05/25 15:38 97.2 128/73 (91) Result Diagram: 05/05/25 0548 05/05/25 0548 General Appearance: alert, awake, oriented to time place person. Not in acute distress. On room air Malnourished. Cachectic HEENT: No icterus, no pallor. Bilateral Temporal wasting. No JVD and bilateral carotid upstroke Respiratory: Breath sounds are improved on the right middle and right lower zone. Crepitations are present on right middle and right lower zone , improved and bilateral expiratory wheezes present over the interscapular area and suprascapular area .improved when compared to the yesterday. Cardiovascular: regular rate, rhythm, no edema, no murmur Gastrointestinal: Soft, nondistended, nontender, no organomegaly. No guarding/rigidity/rebound tenderness Extremities: No pedal edema. Clubbing is present. No cyanosis Skin: warm and dry Neurologic: No functional neurological deficit. Sensory, motor, autonomic, cerebellum, cranial nerves are intact Psychiatric: Mild agitated. Coagulation Studies Laboratory Tests Test 05/02/25 14:13 Prothrombin Time 13.0 SECONDS (9.0-12.0) H INR International Normalized Ratio 1.3 INR Coagulation Comments Advance Care Planning Advanced Care plannin - 30 Minutes Assessment Assessment 79-year-old male with past medical history of COPD, hypertension is admitted in the hospital for evaluation and management of acute hypoxemic respiratory failure secondary to community-acquired pneumonia and right-sided pleural effusion most likely parapneumonic. Plan Plan Acute hypoxemic respiratory failure likely secondary to 1)Right parapneumonic effusion 2)Bilateral pneumonia secondary to Serratia 3)Right sided empyema 2/2 streptococcal infection status post chest tube drainage 4)Trapped lung with right small pneumothorax 5)Acute exacerbation of advanced COPD The patient's oxygen requirement has come down significantly. He is breathing comfortably on room air. He had a right side pigtail catheter placed by Dr. Garcia on the right side. The pigtail catheter has been draining significant amount of white purulent fluid, 2000 mL so far. We will continue chest tube drainage for now and we will follow up with a repeat chest CT Sputum showed Serratia marcescens and Gram-positive cocci suggestive of Streptococcus Patient has been put on isolation and awaiting the test results for QuantiFERON to rule out tuberculosis. The on-call blow molding machine operator-Dr. Harrell has been consulted for the management of the patient's chest tube. Appreciate recommendations- Dr. Harrell ' s team think that patient may benefit from decortication surgery . On DuoNeb q.4h scheduled and albuterol q.2h p.r.n. Discontinued methylprednisolone 40 mg IV b.i.d.. Per Dr. Martinez we are continuing ceftriaxone, clindamycin but Dr. Martinez thinks that he may improve with IV antibiotics and chest tube drainage. Normocytic normochromic anemia H&H is 10.5 and 31.7 Follow up with iron studies. Continue to monitor H&H daily. Severe protein malnutrition Failure to thrive Hypoalbuminemia on aspiration precautions. Started ensure Enlive p.o. t.i.d. and multivitamin tablets. Human Resources Benefits Coordinator has been consulted. Diabetes mellitus A1c is 6 and blood glucose is in 140s Started on hyperglycemia/hypoglycemia protocol. Hyperkalemia-resolved Continue to monitor electrolytes closely. Code status: Full code Diet: Soft diet DVT prophylaxis: SCDs and heparin PT: Ordered Prognosis: Guarded Eulalio Gongora Internal Medicine Resident, PGY-2 Date of Service: May 05, 2025 Billing Provider: JT SALMON MD, VENKATESH, RES May 05, 2025 19:06
[2025-05-06] VITALS (20 sets, daily range): BP systolic 106–124; BP diastolic 63–81; PULSE 64–96; RESP 14–80; TEMP 97.2–98.3; O2SAT 93–97
[2025-05-06] MEDS: HYDROmorphone inj. 0.5 MG/0.5 ML DISP.SYRIN IV PRN (00:32)
[2025-05-06 06:57] LABS: MEAN PLATELET VOLUME 6.8 FL (7.4-10.4); RED CELL DISTRIBUTION WIDTH 18.7 % (11.5-14.5)
[2025-05-06] MEDS: methylPREDNISolone sod succ/PF 40mg inj. IV SCH (07:17)
[2025-05-06 07:44] LABS: CREATININE 0.90 MG/DL (0.60-1.10); TOTAL CARBON DIOXIDE 32.8 MMOL/L (24-32); eCRCL 37 ML/MIN; eGFR 81 ML/MIN
[2025-05-06] MEDS ORDERED: iohexol 300mg/ml 100ml inj. ONE (14:59)
--- NOTE | 2025-05-06 15:57 | RADIOLOGY REPORT ---
EXAM: CT CT CHEST W/ IV CONTRAST History: empyema Comparison Study: DI CHEST,SINGLE VIEW on DOS: 05/05/25, DI CHEST,SINGLE VIEW on DOS: 05/03/25, CT CTA C HEST PE W/ IV CONTRAST on DOS: 05/02/25 TECHNIQUE: A digital manufacturing management associate image was obtained. During the uneventful, intravenous administration of c ontrast material, multislice data acquisition was obtained through the chest. The data set was subseq uently reconstructed into axial, coronal, and sagittal images. Radiation Dose : CTDI vol 7.58 mGy, DLP 301.51 mGy*cm. Findings: Lungs: Centrilobular and paraseptal emphysema. Small right lower lung field pneumothorax, less than 5 %. 0.8 cm right middle lobe ground-glass opacity. 1.1 cm left lower lobe pulmonary nodule. Mild right lower lobe atelectasis versus consolidation. Pleura: Trace bilateral pleural effusions, [id number]-right. Pigtail catheter terminates along the posterior right lower hemithorax. Heart/Great vessels: No cardiomegaly or pericardial effusion. Moderate coronary atherosclerosis. Mediastinum: Debris within the esophagus. Unremarkable Soft tissues/Bones: Moderate multilevel degenerative changes of the thoracic spine The partially visualized upper abdomen is within normal limits. Impression: 1. Small right lower lung field pneumothorax, less than 5%, favored iatrogenic due to pigtail cathete r. 2. Trace bilateral pleural effusions, [id number]-right. 3. Right lower lobe atelectasis versus an infectious/inflammatory etiology. 4. Debris within the esophagus places the patient at risk for aspiration. 5. Other nonacute, ancillary findings as described above.
--- NOTE | 2025-05-06 16:29 | PROGRESS NOTE- Residence ---
Progress Note - Resident Providers to CC Resident Creating Document: EULALIO GONGORA RES ~ Antibiotic Timeout Antibiotic Ordered?: Yes Subjective Patient seen and examined at the bedside today. A total of 250- 300 mL fluid collection in pleur evac so far. He is still complaining of the chest pain, cough while trying to move but improved with the shortness of breath. We consulted Dr. Harrell over the telephone today about the chest tube . Objective Vital Signs Date Time Temp Pulse Resp B/P (MAP) Pulse Ox O2 Delivery O2 Flow Rate FiO2 05/06/25 16:22 88 24 Room Air 0.0 21 05/06/25 16:16 95 05/06/25 15:48 97.6 117/69 (85) Result Diagram: 05/06/25 0638 05/06/25 0638 General Appearance: alert, awake, oriented to time place person. Not in acute distress. On room air Malnourished. Cachectic. With right-sided chest tube HEENT: No icterus, no pallor. Bilateral Temporal wasting. No JVD and bilateral carotid upstroke Respiratory: Breath sounds are improved on the right middle and right lower zone. Still inspiratory crepitations are present in right middle and lower zone. Mild occasional expiratory wheezes are present in right side Cardiovascular: regular rate, rhythm, no edema, no murmur Gastrointestinal: Soft, nondistended, nontender, no organomegaly. No guarding/rigidity/rebound tenderness Extremities: No pedal edema. Clubbing is present. No cyanosis Skin: warm and dry Neurologic: No functional neurological deficit. Sensory, motor, autonomic, cerebellum, cranial nerves are intact Psychiatric: Mild agitated. Coagulation Studies Laboratory Tests Test 05/02/25 14:13 Prothrombin Time 13.0 SECONDS (9.0-12.0) H INR International Normalized Ratio 1.3 INR Coagulation Comments Advance Care Planning Advanced Care plannin - 30 Minutes Assessment Assessment 79-year-old male with past medical history of COPD, hypertension is admitted in the hospital for evaluation and management of acute hypoxemic respiratory failure secondary to community-acquired pneumonia and right-sided pleural effusion most likely parapneumonic. Plan Plan Acute hypoxemic respiratory failure likely secondary to 1) Right parapneumonic effusion 2) Bilateral pneumonia secondary to Serratia 3) Right sided empyema 2/2 streptococcal infection status post chest tube placement 4) Trapped lung with right small pneumothorax 5)Acute exacerbation of advanced COPD The patient's oxygen requirement has come down significantly. He is breathing comfortably on room air. He had a right side pigtail catheter placed by Dr. Garcia on the right side. The pigtail catheter has been draining significant amount of white purulent fluid, 2000 mL so far. We will continue chest tube drainage for now and we will follow up with a repeat chest CT . Follow up chest CT showed small right lower lung field hemothorax less than 5% and trace bilateral pleural effusion left greater than right. Right lower lobe atelectasis. Sputum showed Serratia marcescens and Gram-positive cocci suggestive of Streptococcus Patient has been put on isolation and awaiting the test results for QuantiFERON to rule out tuberculosis. The on-call micromatic hone operator-Dr. Harrell has been consulted for the management of the patient's chest tube. Dr. Harrell ' s team think that patient may benefit from decortication surgery . On DuoNeb q.4h scheduled and albuterol q.2h p.r.n. On methylprednisolone 40 mg IV daily Per Dr. Martinez we are continuing ceftriaxone, clindamycin but Dr. Martinez thinks that he may improve with IV antibiotics and chest tube drainage. We consulted Dr. Harrell regarding the chest tube and he recommended to continue the chest tube placement resident is draining 350 mL so far. Normocytic normochromic anemia H&H is 11.5 and 35.4 Follow up with iron studies. Continue to monitor H&H daily. Severe protein malnutrition Failure to thrive Hypoalbuminemia on aspiration precautions. Started ensure Enlive p.o. t.i.d. and multivitamin tablets. 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 Hyperkalemia-resolved Continue to monitor electrolytes closely. Code status: Full code Diet: Heart healthy diet DVT prophylaxis: SCDs and heparin PT: Ordered Prognosis: Guarded Eulalio Gongora Internal Medicine Resident, PGY-2 Date of Service: May 06, 2025 Billing Provider: JT SALMON MD, VENKATESH, SIN May 06, 2025 16:28
[2025-05-07] VITALS (19 sets, daily range): BP systolic 104–126; BP diastolic 57–74; PULSE 70–96; RESP 16–26; TEMP 96.6–98.1; O2SAT 93–97
[2025-05-07 07:28] LABS: MEAN PLATELET VOLUME 7.2 FL (7.4-10.4); RED CELL DISTRIBUTION WIDTH 18.7 % (11.5-14.5)
[2025-05-07 07:49] LABS: CREATININE 0.83 MG/DL (0.60-1.10); TOTAL CARBON DIOXIDE 34.8 MMOL/L (24-32); eCRCL 41 ML/MIN; eGFR 89 ML/MIN
[2025-05-07 08:19] LABS: BANDS% (MANUAL) 1.0 % (0-10); LYMPHOCYTES % (MANUAL) 13.0 % (21-51); MONOCYTES % (MANUAL) 5.0 % (2-12); MYELOCYTES % (MANUAL) 1.0 % (0-0); NEUTROPHILS % (MANUAL) 80.0 % (42-75); PLATELET ESTIMATE NORMAL
[2025-05-07 08:20] LABS: ELLIPTOCYTES FEW
--- NOTE | 2025-05-07 09:36 | PROGRESS NOTE ---
Progress Note Dictate Providers to CC ~ Subjective Subjective: He has been holding steady. Breathing is stable. No fever. Much less output from chest tube. Objective Objective: GENERAL: He is a pleasant, thin, elderly male, sitting up in bed, looking stable. LUNGS: Breath sounds fairly normal bilaterally. He does have a right-sided chest tube in place. No air leak. HEART: Regular rate and rhythm. ABDOMEN: Soft, nontender, and nondistended. EXTREMITIES: No edema. Lab Results: 05/07/2563205/07/25632 Radiology comments: CT chest with small persistent pneumothorax at right base. I suspect this represents a trapped lung. Problem\Assessment\Plan Additional Plan 1. 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 Bilateral lower lobe pneumonia Serratia on culture 3. COPD with recent discontinuation of smoking Change ceftriaxone to levofloxacin Continue clindamycin Plan for prolonged course of oral therapy Taper steroids Chest tube can likely be removed soon Will need close outpatient follow-up with repeat imaging DEREK MIGUEL MD May 07, 2025 09:36
--- NOTE | 2025-05-07 19:10 | PROGRESS NOTE- Residence ---
Progress Note - Resident Providers to CC Resident Creating Document: EULALIO GONGORA RES ~ Antibiotic Timeout Antibiotic Ordered?: Yes Subjective Patient seen and examined at the bedside today. A total of 180 mL fluid collection in pleur evac so far the morning. He reports that his shortness of breath improved a lot better. He still complains of chest pain, cough while trying to move. Objective Vital Signs Date Time Temp Pulse Resp B/P (MAP) Pulse Ox O2 Delivery O2 Flow Rate FiO2 05/07/25 16:06 82 18 Room Air 0.0 21 05/07/25 15:58 96 05/07/25 15:00 98.1 104/66 (79) Result Diagram: 05/07/2533 05/07/25632 General Appearance: alert, awake, oriented to time place person. Not in acute distress. On room air Malnourished. Cachectic. With right-sided chest tube HEENT: No icterus, no pallor. Bilateral Temporal wasting. No JVD and bilateral carotid upstroke Respiratory: Breath sounds are improved on the right middle and right lower zone. Still inspiratory crepitations are present right lower lung- occasional. No wheeze Cardiovascular: regular rate, rhythm, no edema, no murmur Gastrointestinal: Soft, nondistended, nontender, no organomegaly. No guarding/rigidity/rebound tenderness Extremities: No pedal edema. Clubbing is present. No cyanosis Skin: warm and dry Neurologic: No functional neurological deficit. Sensory, motor, autonomic, cerebellum, cranial nerves are intact Psychiatric: Mild agitated. Coagulation Studies Laboratory Tests Test 05/02/25 14:13 Prothrombin Time 13.0 SECONDS (9.0-12.0) H INR International Normalized Ratio 1.3 INR Coagulation Comments Advance Care Planning Advanced Care plannin - 30 Minutes Assessment Assessment 79-year-old male with past medical history of COPD, hypertension is admitted in the hospital for evaluation and management of acute hypoxemic respiratory failure secondary to community-acquired pneumonia and right-sided pleural effusion most likely parapneumonic. Plan Plan Acute hypoxemic respiratory failure likely secondary to 1) Right parapneumonic effusion 2) Bilateral pneumonia secondary to Serratia, improving 3) Right sided empyema 2/2 streptococcal infection status post chest tube placement , improving 4) Trapped lung with right small pneumothorax 5)Acute exacerbation of advanced COPD The patient's oxygen requirement has come down significantly. He is breathing comfortably on room air. He had a right side pigtail catheter placed by Dr. Garcia on the right side. The pigtail catheter has been draining significant amount of white purulent fluid, 2000 mL so far. We will continue chest tube drainage for now and we will follow up with a repeat chest CT . Follow up chest CT showed small right lower lung field hemothorax less than 5% and trace bilateral pleural effusion left greater than right. Right lower lobe atelectasis. Sputum showed Serratia marcescens and Gram-positive cocci suggestive of Streptococcus Patient has been put on isolation and awaiting the test results for QuantiFERON to rule out tuberculosis. The on-call consulting actuary-Dr. Harrell has been consulted for the management of the patient's chest tube. Dr. Harrell ' s team think that patient may benefit from decortication surgery . On DuoNeb q.4h scheduled and albuterol q.2h p.r.n. On methylprednisolone [address] Martinez changed antibiotics to levofloxacin and continuing clindamycin. We consulted over the telephone and he said okay to transfer to LTAC Normocytic normochromic anemia H&H is 11.7 and 36 Follow up with iron studies. Continue to monitor H&H daily. Severe protein malnutrition Failure to thrive Hypoalbuminemia on aspiration precautions. Started ensure Enlive p.o. t.i.d. and multivitamin tablets. [employer]ider has been consulted and on heart healthy diet Diabetes mellitus A1c is 6 and blood glucose is in 140s Started on hyperglycemia/hypoglycemia protocol with 7 units of Lantus Q 24 H and medium dose of Humalog. Hyperkalemia-resolved Continue to monitor electrolytes closely. Code status: Full code Diet: Heart healthy diet DVT prophylaxis: SCDs and heparin PT: Ordered Prognosis: Guarded Eulalio Gongora Internal Medicine Resident, PGY-2 Disposition: Likely LTAC transfer with chest tube Date of Service: May 07, 2025 Billing Provider: JT SALMON MD, VENKATESH, RES May 07, 2025 19:10
[2025-05-08] VITALS (7 sets, daily range): BP systolic 102–121; BP diastolic 59–66; PULSE 77–81; RESP 17–22; TEMP 96.3–97.2; O2SAT 94–97
[2025-05-08 07:13] LABS: MEAN PLATELET VOLUME 6.7 FL (7.4-10.4); RED CELL DISTRIBUTION WIDTH 18.4 % (11.5-14.5)
[2025-05-08] MEDS: methylPREDNISolone sod succ/PF 40mg inj. IV SCH (07:58)
--- NOTE | 2025-05-08 08:14 | RADIOLOGY REPORT ---
EXAM: DI CHEST,SINGLE VIEW Indication: Right empyema Status post chest tube placement, day 5 Technique: Single frontal view of the chest was obtained Comparison: CT CT CHEST W/ IV CONTRAST on DOS: 05/06/25, DI CHEST,SINGLE VIEW on DOS: 05/05/25, DI CHEST, SINGLE VIEW on DOS: 05/03/25, DI CHEST,SINGLE VIEW on DOS: 05/02/25, DI CHEST,SINGLE VIEW on DOS: 5 FINDINGS: Lines and Tubes: Right pigtail catheter unchanged in position Very small right peripheral pneumothorax Right basilar opacity. Small right pleural effusion Cardiomediastinal contours: Unremarkable Bones: Unremarkable IMPRESSION: No significant change compared to prior exam.
[2025-05-08 09:18] LABS: EOSINOPHILS % (MANUAL) 2.0 % (0-6); LYMPHOCYTES % (MANUAL) 10.0 % (21-51); METAMYLEOCYTES% (MANUAL) 2.0 % (0-0); MONOCYTES % (MANUAL) 7.0 % (2-12); NEUTROPHILS % (MANUAL) 79.0 % (42-75)
[2025-05-08 09:19] LABS: PLATELET ESTIMATE NORMAL
[2025-05-08 10:08] LABS: CREATININE 0.87 MG/DL (0.60-1.10); TOTAL CARBON DIOXIDE 33.8 MMOL/L (24-32); eCRCL 42 ML/MIN; eGFR 84 ML/MIN
[2025-05-08] MEDS ORDERED: aspirin 81mg, enteric-coated 1 TAB TABLET.DR PO SCH (13:05)
[2025-05-08 13:44] LABS: CREATININE 0.98 MG/DL (0.60-1.10); eCRCL 37 ML/MIN; eGFR 73 ML/MIN
[2025-05-08] MEDS ORDERED: sacubitril/valsartan 24mg-26mg tablet PO SCH (20:00)
--- NOTE | 2025-05-08 20:39 | DISCHARGE SUMMARY-Residence ---
Discharge Summary Providers to CC Resident Creating Document: EULALIO GONGORA, RES ~ Discharge Summary Admission Diagnosis: ACUTE HYPOXEMIC RESPIRATORY FAILURE, ACUTE EXACERBATION OF COPD, PNEUMONIA Hospital Course DATE OF ADMISSION: 05/02/2025 DATE OF DISCHARGE: 05/08/2025 Chest x-ray on 05/02/2025 FINDINGS: Lines and Tubes: None Lungs: Right lower lobe airspace disease. Pleura: Small to moderate right pleural effusion. No pneumothorax. Cardiomediastinal contours: Unremarkable Bones: Unremarkable IMPRESSION: Right lower lobe airspace disease. Small to moderate right pleural effusion. Chest/thoracic CTA on 05/02/2025 IMPRESSION: 1. No evidence of pulmonary embolism. 2. Large loculated right pleural effusion with compressive atelectasis of the majority of the right lower lobe. Consider therapeutic right thoracentesis. 3. Reactive airways disease with peribronchial thickening and bilateral lower lobe mucous plugging. Patchy opacities in the left lower lobe may represent postobstructive atelectasis or pneumonia. 4. Moderate to severe emphysema. 5. Coronary artery disease and pericardial effusion. Echocardiogram on 05/02/2025 Conclusion Normal LV size and wall thickness. Overall systolic function is normal. LVEF is 60-65%. The left atrium size is normal. Trileaflet AV appears mildly sclerotic without stenosis. Poor Doppler angles due to lack of adequate imaging windows, quantitative data must be clinically correlated. No insufficiency. Mild mitral annular calcification without stenosis. Trace regurgitation. The tricuspid valve is normal in structure with mild regurgitation. The pulmonary valve is normal in structure with trace insufficiency. Normal pericardium. No effusion. Thoracentesis on 05/03/2025 PRE-PROCEDURE DIAGNOSIS: Pleural effusion POST-PROCEDURE DIAGNOSIS: Pus/large right-sided empyema HISTORY: Pleural effusion Complications: None ESTIMATED BLOOD LOSS: 0 ml PROCEDURE: The nature, alternatives, and risks were discussed with the patient and informed consent was disclosed. The patient was positioned upright and ultrasound was used to examine the posterior right chest. An appropriate position was marked at the skin. After sterile preparation and draping, 1% Lidocaine 8 mL subcutaneous anesthesia was administered. The right pleural space was entered with a 5 Ukrainian HiFiKiddoeh catheter. Gal pus was aspirated and sent to laboratory for analysis. Because of this plans were made for chest tube. Over a [employer] guidewire, the catheter was exchanged for a 10.2 Fr Rojas-Foreman catheter which was connected to a Pleurovac for suction and secured to the chest wall with an adhesive dressing. The patient tolerated the procedure well without apparent acute complications. IMPRESSION: 1. Placement of right 10.2 Ukrainian chest tube. 2. Diagnostic right thoracentesis Chest x-ray on 05/03/2025 FINDINGS: Lines and Tubes: Right pigtail catheter. Lungs: Interval decrease in right pleural effusion. Multifocal right lung opacities. Pleura: No effusion. No pneumothorax. Cardiomediastinal contours: Unremarkable Bones: No acute osseous abnormality. IMPRESSION: Interval placement of right pigtail catheter and interval decrease in right pleural effusion. Chest x-ray on 05/05/2025 FINDINGS: Lines and Tubes: Right pigtail catheter unchanged in position Very small right peripheral pneumothorax Right basilar atelectasis/ pleural effusion, diminished since the prior study. Lungs: Clear Pleura: No effusion. No pneumothorax. Cardiomediastinal contours: Unremarkable Bones: Unremarkable IMPRESSION: 1. Small right peripheral pneumothorax Right basal atelectasis/ fluid, improved since the prior study Chest CT on 05/06/2025 Findings: Lungs: Centrilobular and paraseptal emphysema. Small right lower lung field pneumothorax, less than 5%. 0.8 cm right middle lobe ground-glass opacity. 1.1 cm left lower lobe pulmonary nodule. Mild right lower lobe atelectasis versus consolidation. Pleura: Trace bilateral pleural effusions, [id number]. Pigtail catheter terminates along the posterior right lower hemithorax. Heart/Great vessels: No cardiomegaly or pericardial effusion. Moderate coronary atherosclerosis. Mediastinum: Debris within the esophagus. Unremarkable Soft tissues/Bones: Moderate multilevel degenerative changes of the thoracic spine The partially visualized upper abdomen is within normal limits. Impression: 1. Small right lower lung field pneumothorax, less than 5%, favored iatrogenic due to pigtail catheter. 2. Trace bilateral pleural effusions, [id number]-right. 3. Right lower lobe atelectasis versus an infectious/inflammatory etiology. 4. Debris within the esophagus places the patient at risk for aspiration. 5. Other nonacute, ancillary findings as described above. Chest x-ray on 05/08/2025 FINDINGS: Lines and Tubes: Right pigtail catheter unchanged in position Very small right peripheral pneumothorax Right basilar opacity. Small right pleural effusion Cardiomediastinal contours: Unremarkable Bones: Unremarkable IMPRESSION: No significant change compared to prior exam Discharge Diagnosis\Comment: Acute hypoxemic respiratory failure Acute exacerbation of advanced COPD Bilateral pneumonia secondary to Serratia Right-sided empyema 2/2 Alpha Hemolytic Streptococcus Status post pigtail catheter placement Trapped lung with right small hemothorax , expected outcome Normocytic normochromic anemia Severe protein malnutrition Failure to thrive Hypoalbuminemia Type 2 Diabetes mellitus Hyperkalemia Acute diastolic heart failure, Ruled out Coronary artery disease Operations\Procedures: Thoracentesis on 05/03/2025 PRE-PROCEDURE DIAGNOSIS: Pleural effusion POST-PROCEDURE DIAGNOSIS: Pus/large right-sided empyema HISTORY: Pleural effusion Complications: None ESTIMATED BLOOD LOSS: 0 ml PROCEDURE: The nature, alternatives, and risks were discussed with the patient and informed consent was disclosed. The patient was positioned upright and ultrasound was used to examine the posterior right chest. An appropriate position was marked at the skin. After sterile preparation and draping, 1% Lidocaine 8 mL subcutaneous anesthesia was administered. The right pleural space was entered with a 5 Ukrainian HiFiKiddoeh catheter. Gal pus was aspirated and sent to laboratory for analysis. Because of this plans were made for chest tube. Over a [employer] guidewire, the catheter was exchanged for a 10.2 Fr Rojas-Foreman catheter which was connected to a Pleurovac for suction and secured to the chest wall with an adhesive dressing. The patient tolerated the procedure well without apparent acute complications. IMPRESSION: 1. Placement of right 10.2 Ukrainian chest tube. 2. Diagnostic right thoracentesis Consultants: Dr. Kvng Garcia. Dr. Gary Martinez Complications: None Condition on DC: Stable Discharge Summary: HPI at the time of admission 79-year-old male with past medical history of COPD, ex-chronic smoker presented to the ER with a chief complaints of shortness of Breath. Endorses shortness of breath for the past 3 months but worsened since 3 days which brought him to the ER. SOB is associated with orthopnea and PND for the past 1 week. he reports chest pain, pleuritic type, 8/10, more on the right lower lung and aggravated with taking deep breath, standing and sitting too. He endorses cough for the past 4 days associated with yellow-colored sputum, thick in consistency. He do reports wheezing. He denied pedal edema, fever, palpitations, facial puffiness, decreased urine output. He is following Dr. Hamilton for his coronary artery disease(which is questionable, no records available) and he did underwent chemical stress test in Dr. Hamilton's office when he got the 2nd heart attack) We tried to discuss code status with him but he refused to answer and gave his medical POA contact number Ms. Kumar([phone]). We called her in the evening and explained the advanced directives and she want us to continue full code until tomorrow as she could not able to take the clear-cut decision right now. Course in the hospital . 79-year-old male admitted with acute hypoxemic respiratory failure secondary to acute exacerbation of COPD, right parapneumonic effusion with bilateral pneumonia and with right-sided empyema. Blood pressures are soft initially in 90s, tachypnea was present. He was on 3 L of oxygen via nasal cannula. WBC counts, procalcitonin are normal. Initial elevation of lactic acid, 2.2 and trended down to 1.1 after initial fluid resuscitation with 1 L of normal saline. Chest x-ray showing right moderate pleural effusion. CT angiography ruled out PE but showed bilateral pneumonia with right loculated large pleural effusion. Echocardiogram showed ejection fraction of 60-65% with RVSP of 35. He received ceftriaxone 1 g, 500 mg of azithromycin, 125 mg of methylprednisolone on day 1. He was on On DuoNebs q.4h scheduled and albuterol q.2h p.r.n, incentive spirometer q.1h while awake. Consulted IR team, Kvng Pickering. Hemoglobin and hematocrit is 11.8 and 35.6. He is in severe protein malnutrition, failure to thrive, hypoalbuminemia and he received ensure enlive, multivitamin. G stain and culture showed Serratia marcescens and alpha hemolytic Streptococcus. Kvng Pickering put a pigtail catheter on the right side of the chest. He had a significant amount of draining in the Pleur-evac tube with white purulent 2000 mL during the time of pigtail catheter placement and the last Pleur-evac fluid trend is in the hospital course in last 24 hours is less than 180 mL. Initially he received 3 doses of Zithromax. ceftriaxone started on 05/02/[address] Martinez-continued the antibiotic regimen with levofloxacin(started on 05/07/2025) and clindamycin(started on 05/04/2025). Follow up chest CT showed small right lower lung field hemothorax less than 5% trace bilateral pleural effusion left greater than right. Right lower lobe atelectasis. Trapped lung with right small pneumothorax is noted. She received DuoNebs scheduled and albuterol p.r.n. we titrated the methylprednisolone initial stat dose of 125 to 20 mg. QuantiFERON TB testing is indeterminate. 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 Blood glucose is well controlled in 140s and he received Lantus of 7 units and medium dose Humalog insulin protocol. He received SCDs and heparin for DVT prophylaxis. Patient did not received Entresto, spironolactone, midodrine in-hospital course. We called the [facility] pharmacy and try to clarify about his home medications with the pharmacist and she told that he is on both furosemide losartan, Entresto, midodrine, spironolactone. He is following fudger- Dr. Cecil Hamilton for his coronary artery disease and Dr. Zhang at [facility]. The recent prescription to [facility] pharmacy is from Dr. Zhang but pharmacist he endorses that dear getting multiple prescriptions from different providers-Carroll Hamilton, Dr. Zhang ,Dr. Gopal Santo. Examination of the time of discharge Vital Signs Date Time Temp Pulse Resp B/P (MAP) Pulse Ox O2 Delivery O2 Flow Rate FiO2 05/08/25 11:00 96.3 81 18 102/59 (73) 94 Room Air 05/08/25 08:00 0.0 21 General Appearance: alert, awake, oriented to time place person. Not in acute distress. On room air. Malnourished& Cachectic. With right-sided chest tube HEENT: No icterus, no pallor. Bilateral Temporal wasting. No JVD and bilateral carotid upstroke Respiratory: Breath sounds are improved on the right middle and right lower zone. Still inspiratory crepitations are present right lower lung- occasional. No wheeze Cardiovascular: regular rate, rhythm, no murmurs/rubs. no edema, no murmur Gastrointestinal: Soft, nondistended, nontender, no organomegaly. No guarding/rigidity/rebound tenderness Extremities: No pedal edema. Clubbing is present. No cyanosis Skin: warm and dry Neurologic: No functional neurological deficit. Sensory, motor, autonomic, cerebellum, cranial nerves are intact Psychiatric: Mood and affect is normal Laboratory Tests Test 05/07/25 16:56 05/07/25 20:06 05/08/25 07:01 05/08/25 07:07 Glucometer 143 mg/dl 127 mg/dl 72 mg/dl White Blood Count 10.8 X10'3 Red Blood Count 3.83 X10'6 Hemoglobin 11.2 g/dl Hematocrit 33.5 % Mean Corpuscular Volume 87.5 FL Mean Corpuscular Hemoglobin 29.4 PG Mean Corpuscular Hemoglobin Concent 33.6 g/dL Red Cell Distribution Width 18.4 % Platelet Count 363 X10'3 Mean Platelet Volume 6.7 FL Neutrophils (%) (Auto) 81.8 % Lymphocytes (%) (Auto) 12.1 % Monocytes (%) (Auto) 5.4 % Eosinophils (%) (Auto) 0.4 % Basophils (%) (Auto) 0.3 % Neutrophils # (Auto) 8.8 X10'3 Lymphocytes # (Auto) 1.3 X10'3 Monocytes # (Auto) 0.6 X10'3 Eosinophils # (Auto) 0.0 X10'3 Basophils # (Auto) 0.0 X10'3 CBC Comment Differential Total Cells Counted 100 Neutrophils % (Manual) 79.0 % Lymphocytes % (Manual) 10.0 % Monocytes % (Manual) 7.0 % Eosinophils % (Manual) 2.0 % Metamyelocytes % 2.0 % Platelet Estimate Normal Red Blood Cell Morphology Perf Basophilic Stippling Anisocytosis 2+ Sodium Level 137 MMOL/L Potassium Level 4.9 MMOL/L Chloride Level 100 MMOL/L Carbon Dioxide Level 33.8 MMOL/L Anion Gap 3 Blood Urea Nitrogen 41 MG/DL Creatinine 0.87 MG/DL Estimated GFR/1.73 m2 84 ML/MIN BUN/Creatinine Ratio 47.1 Glucose Level 72 MG/DL Calcium Level 9.0 MG/DL Total Bilirubin 0.2 MG/DL Aspartate Amino Transf (AST/SGOT) 23 U/L Alanine Aminotransferase (ALT/SGPT) 24 U/L Alkaline Phosphatase 84 IU/L Total Protein 5.6 G/DL Albumin 1.9 G/DL Globulin 3.7 G/DL Albumin/Globulin Ratio 0.5 Chemistry Comments Test 05/08/25 11:29 05/08/25 13:21 Glucometer 157 mg/dl Potassium Level 4.7 MMOL/L Creatinine 0.98 MG/DL Estimated GFR/1.73 m2 73 ML/MIN Discharge advice Based on the recent echo patient seems to be does not have any heart failure but he had a coronary artery disease and he may have heart failure in the past and ejection fraction might be improved secondary to gdmt medications of Entresto, spironolactone and he is following Dr. Hamilton and Dr. Zhang - primary care physician and and he had both losartan & Entresto seems to be mistake/polypharmacy Continue losartan 25 mg & spironolactone 12.5 p.o. b.i.d. Recommended to hold Entresto, midodrine and hold Lasix. continue aspirin 81mg. Follow up with Dr. Zhang & Dr. Hamilton. Polypharmacy needs to be addressed(we called his pharmacy and checked his medication and he was on the medications of both Entresto and losartan, midodrine, Lasix. we called ted RN for addressing the issue. Visit ER or call 911 if emergency. *Problems/Diagnosis: (1) Trapped lung (2) Pneumothorax (3) Acute hypoxemic respiratory failure (4) Parapneumonic effusion (5) Empyema (6) Acute exacerbation of chronic obstructive pulmonary disease (COPD) (7) Severe protein-calorie malnutrition (8) Failure to thrive (9) Hypoalbuminemia (10) Diabetes mellitus (11) Hyperkalemia (12) Normocytic normochromic anemia (13) Parapneumonic effusion Total Time Spent on D/C: > 30 Minutes Date of Service: May 08, 2025 Billing Provider: JT SALMON MD, VENKATESH, RES May 08, 2025 20:39
== END 2025-05-08 14:19 | DRG 177 ==
LOC: ER 13:30 → ED HOLD 15:21 → PCU 3S 22:40
PROVIDERS: ADMIT Family Medicine; ATTEND Family Medicine
PROC: B32T1ZZ Computerized Tomography (CT Scan) of Left Pulmonary Artery using Low Osmolar Contrast (ICD-10-PCS; 2025-05-02)
PROC: B3201ZZ Computerized Tomography (CT Scan) of Thoracic Aorta using Low Osmolar Contrast (ICD-10-PCS; 2025-05-02)
PROC: B32S1ZZ Computerized Tomography (CT Scan) of Right Pulmonary Artery using Low Osmolar Contrast (ICD-10-PCS; 2025-05-02)
PROC: 0W9930Z Drainage of Right Pleural Cavity with Drainage Device, Percutaneous Approach (ICD-10-PCS; principal; 2025-05-03)
PROC: BW241ZZ Computerized Tomography (CT Scan) of Chest and Abdomen using Low Osmolar Contrast (ICD-10-PCS; 2025-05-06)
DX: J15.69 Pneumonia due to other Gram-negative bacteria (principal); E43 Unspecified severe protein-calorie malnutrition; J86.9 Pyothorax without fistula; J96.01 Acute respiratory failure with hypoxia; J44.1 Chronic obstructive pulmonary disease with (acute) exacerbation; Z68.1 Body mass index [BMI] 19.9 or less, adult; J44.0 Chronic obstructive pulmonary disease with (acute) lower respiratory infection; J90 Pleural effusion, not elsewhere classified; E88.09 Other disorders of plasma-protein metabolism, not elsewhere classified; R62.7 Adult failure to thrive; D64.9 Anemia, unspecified; E87.5 Hyperkalemia; I25.10 Atherosclerotic heart disease of native coronary artery without angina pectoris; Z87.891 Personal history of nicotine dependence; Z88.0 Allergy status to penicillin
CPT/HCPCS: 32557; 36415; 71045; 71260; 71275; 80048; 80053; 80061; 81001; 82565; 82945; 82948; 83036; 83605; 83615; 83735; 83880; 83986; 84100; 84132; 84145; 84157; 84484; 85007; 85008; 85025; 85610; 86480; 87040; 87070; 87077; 87081; 87186; 89051; 92508; 92616; 93306; 94640; 94760; 96365; 96375; 97116; 97161; 97530; 99285; A4421; A4649; A6212; A6213; A6223; A6250; A6258; A6449; C1729; C1769; G0378; J0456; J0696; J1171; J1644; J1815; J1938; J2270; J2543; J2919; J3490; J7030; Q9967